=== PATIENT | male | born 1960 | race Caucasian/White ===

== ENCOUNTER 2017-07-02 06:35 | Day surgery (SDC) | payer BC ==
[~2017-07-02] VITALS: Ht 195.6 cm; Wt 104.3 kg
[~2017-07-02 06:35] MED LIST: TRICOR 145 MG145 MG PO; ZOCOR20 MG PO
--- NOTE | 2017-07-02 07:51 | Operative Note ---
Colonoscopy ([facility]) Procedure date: 07/02/17 Date of : 58 Procedure:Colonoscopy Colonoscopy with cold snare polypectomy Indications: Mr. Nugent is a 56-year-old gentleman who is here for follow-up screening/ surveillance colonoscopy. He had initial screening in May 2010 and had 4 polyps (tubular adenomas 4) removed. His last colonoscopy in July 2018 revealed 6 polyps (tubular adenomas 6) which were removed. He reports no abdominal pain, weight loss, change in his bowel habits or rectal bleeding. He reports no family history of colon cancer. Performing Provider: Cheli Acevedo MD Referrring Provider: Aye Starr M.D. Sedation: MAC sedation Procedure: Prior to the procedure, a history and physical exam was performed, and patient medications and allergies were reviewed. The risks and benefits of the procedure and the sedation options and risks were discussed with the patient. All questions were answered and informed consent was obtained. Patient identification and proposed procedure were verified by the physician and the nurse. The patient was placed in a left lateral decubitus position. Throughout the procedure, the patient's blood pressure, pulse, and oxygen saturations were monitored continuously. Findings: On digital rectal examination there was normal rectal tone. There were no external hemorrhoids. The prostate was 2+, smooth, soft, symmetric without nodules. The colonoscope was introduced through the anal canal to the rectum and advanced to the cecum. The ileocecal valve and appendiceal orifice were identified. The scope was advanced a short distance into the ileum which appeared grossly normal. The scope was then withdrawn into the colon. There were 4 colon polyps identified in the transverse 3 and descending 1. These ranged in size from 5-7 mm and were all removed via cold snare polypectomy. There were mildly scattered diverticuli throughout the descending and sigmoid colon (LEFT colon). The rectum itself was normal. Upon retroflexion within the rectum there were grade 1 internal hemorrhoids. Impressions: 1. Colonic polyps 4 (transverse 3 and descending 1) 2. Mild left-sided diverticulosis 3. Grade 1 internal hemorrhoids Recommendations: I will follow up the polyp pathology and recommend repeat colonoscopy again in 3 -5 years based upon the polyp histology. I would encourage fiber supplementation on a long-term daily maintenance basis. Complications: None EBL (ml): 0 at 0751
[2017-07-02 09:16] VITALS: BP 128/76
== END 2017-07-02 08:53 | disposition home or self-care (01) ==
LOC: SDC 06:35
PROVIDERS: Internal Medicine Gastroenterology
PROC: 0DBL8ZX Excision of Transverse Colon, Via Natural or Artificial Opening Endoscopic, Diagnostic (ICD-10-PCS; 2017-07-02)
PROC: 0DBM8ZX Excision of Descending Colon, Via Natural or Artificial Opening Endoscopic, Diagnostic (ICD-10-PCS; principal; 2017-07-02 11:30)
DX: Z09 Encounter for follow-up examination after completed treatment for conditions other than malignant neoplasm (principal); K63.5 Polyp of colon; Z86.010 Personal history of colon polyps; K57.30 Diverticulosis of large intestine without perforation or abscess without bleeding; K64.0 First degree hemorrhoids